=== PATIENT | female | born 1970 | race African-American/Black ===

== ENCOUNTER 2022-01-03 16:35 | Emergency (ER) | payer MEDICAID ==
[~2022-01-03] VITALS: Ht 177.8 cm; Wt 68.0 kg
[2022-01-03 16:38] VITALS: BP 140/78
== END 2022-01-03 18:46 | disposition left against medical advice (07) ==
LOC: ER 16:35
DX: Z53.21 Procedure and treatment not carried out due to patient leaving prior to being seen by health care provider (principal)